=== PATIENT | male | born 1995 | race Caucasian/White ===

== ENCOUNTER 2017-04-16 21:02 | Emergency (ER) | payer MEDICAID, OTHER ==
[2017-04-16 21:12] VITALS: BP 131/86
--- NOTE | 2017-04-16 21:18 | EDM.PDOC ---
ED HPI GENERAL MEDICAL PROBLEM - General Chief Complaint: Lower Extremity Injury/Pain Stated Complaint: Lower right leg injury Time Seen by Provider: 04/16/17 21:05 Source of Information: Reports: Patient, Family, RN, RN Notes Reviewed History Limitations: Reports: No Limitations - History of Present Illness INITIAL COMMENTS - FREE TEXT/NARRATIVE: Patient presents to the ED at [facility] after he sustained a twisting injury to the right lower extremity. Patient states he was walking down a flight of stairs when he decided to go back up the steps, turning around abruptly twisting the lower right tib/fib area. Patient states he has a previous injury to the RLE that required surgical intervention. The patient complaints of some mild pain to the affected area. No numbness, tingling, or paresthesia to the RLE. Able to ambulate and bare weight with out problems. Patient states "I just want it checked out to make sure everything is ok." Onset: Today Onset Date: 04/16/17 Onset Time: 20:40 - Related Data Allergies Allergy/AdvReac Type Severity Reaction Status Date / Time No Known Allergies Allergy Verified 04/16/17 21:14 Home Meds: Home Meds . [No Known Home Meds] 05/12/14 [History] Past Medical History HEENT History: Reports: Cataract - Past Surgical History HEENT Surgical History: Reports: Cataract Surgery Social & Family History - Tobacco Use Smoking Status *Q: Never Smoker - Recreational Drug Use Recreational Drug Use: No Review of Systems - Review of Systems Review Of Systems: See Below Constitutional: Denies: Chills, Fever, Weakness Respiratory: Denies: Shortness of Breath, Cough Cardiovascular: Denies: Chest Pain, Palpitations Musculoskeletal: Reports: Leg Pain (RLE), Muscle Pain. Denies: Joint Pain, Joint Swelling Skin: Reports: No Symptoms Neurological: Reports: No Symptoms. Denies: Dizziness, Numbness, Paresthesia, Tingling ED EXAM, GENERAL - Physical Exam Exam: See Below Exam Limited By: No Limitations General Appearance: Alert, No Apparent Distress Respiratory/Chest: No Respiratory Distress, Lungs Clear, Normal Breath Sounds Cardiovascular: Normal Peripheral Pulses, Regular Rate, Rhythm Peripheral Pulses: 2+: Posterior Tibial (R), Dorsalis Pedis (R) Extremities: Normal Inspection, Normal Range of Motion, Other (very mild tenderness to deep palpation to the anterior RLE) Skin Exam: Warm, Dry, Intact, Normal Color Course - Vital Signs Last Recorded V/S: Last Vital Signs Temp 36.0 C 04/16/17 21:05 Pulse 100 04/16/17 21:05 Resp 16 04/16/17 21:05 BP 131/86 04/16/17 21:05 Pulse Ox 95 04/16/17 21:05 - Orders/Labs/Meds Orders: Active Orders 24 hr Category Date Time Status Tibia Fibula Rt [CR] Stat Exams 04/16/17 21:12 Taken - Radiology Interpretation Free Text/Narrative:: Right Tib/Fib, 2V: Xray reviewed by me. No acute findings. See scanned Rad report in EMR Departure - Departure Time of Disposition: 21:54 Disposition: Home, Self-Care 01 Condition: Good Clinical Impression: Leg injury Qualifiers: Encounter type: initial encounter Laterality: right Qualified Code(s): S89.91XA - Unspecified injury of right lower leg, initial encounter - Discharge Information Referrals: Abiola Gary PA-C [Primary Care Provider] - Forms: ED Department Discharge Additional Instructions: 1. Stay well hydrated and rest 2. Rest, elevate, and ice right leg several times a day for the next couple days 3. May alternate Tylenol/Advil as needed 4. See your Primary as symptoms warrant 5. Call with any questions/concerns - Problem List Review Problem List Initiated/Reviewed/Updated: Yes - My Orders Last 24 Hours: My Active Orders 04/16/17 21:12 Tibia Fibula Rt [CR] Stat - Assessment/Plan Last 24 Hours: My Active Orders 04/16/17 21:12 Tibia Fibula Rt [CR] Stat Plan: No acute findings on plain film. Recommend rest, elevate and ice several times a day. Follow up with Ortho as directed.
== END 2017-04-16 22:00 | disposition home or self-care (01) ==
LOC: VM.ED 21:02
DX: S89.91XA Unspecified injury of right lower leg, initial encounter (principal); X50.1XXA Overexertion from prolonged static or awkward postures, initial encounter
CPT/HCPCS: 73590-RT; 99283

== ENCOUNTER 2019-08-20 20:28 | Emergency (ER) | payer MEDICAID, OTHER ==
[2019-08-20 20:40] VITALS: PULSE 90
[2019-08-20] MEDS ORDERED: Ketorolac 30 MG/ML SDV IVPUSH ONE (20:42)
[2019-08-20] MEDS ORDERED: Ondansetron 8 MG in Sodium Chloride 0.9% 100 ML IV ONE (20:42)
--- NOTE | 2019-08-20 20:48 | EDM.PDOC ---
ED HPI GENERAL MEDICAL PROBLEM - General Chief Complaint: Abdominal Pain Stated Complaint: STOMACH PAIN Time Seen by Provider: 08/20/19 20:30 Source of Information: Reports: Patient History Limitations: Reports: No Limitations - History of Present Illness INITIAL COMMENTS - FREE TEXT/NARRATIVE: Patient states over the last 24 hours he has had intermittent right lower quadrant pain that he describes as a sharp stabbing he says at the worst is about a 10 today it is about a 3 or 4. He states it may last just a few seconds and the may last 4 to 5 minutes. He said is progressively gotten worse today in the area states he had a bowel movement about 1:00 which did not alleviate the pain he said he tried to eat some soup and settle his stomach for supper tonight but it did not help so he went on into work and was not able to fill that shift. He states he has had some nausea and has not really wanted to eat in the last 24 hours but Betasept eat and states he actually could not eat his favorite meal of steak that his is going to cook for him states it actually made him nauseated when he thought about it. He denies any other complaints at this time he denies any fever or chills back pain issues Duration: Day(s): Location: Reports: Abdomen Quality: Reports: Sharp, Stabbing Severity: Moderate Improves with: Reports: Rest Worsens with: Reports: None Associated Symptoms: Reports: Nausea/Vomiting Right Lower Abdomen Pain Score (Numeric/FACES): 4 - Related Data Allergies Allergy/AdvReac Type Severity Reaction Status Date / Time No Known Allergies Allergy Verified 08/20/19 20:36 Home Meds: Home Meds Diclofenac Sodium [Voltaren] 75 mg PO QAM PRN 01/28/18 [History] Past Medical History HEENT History: Reports: Cataract Musculoskeletal History: Reports: Fracture Other Musculoskeletal History: right tib/fib fracture - Past Surgical History HEENT Surgical History: Reports: Cataract Surgery Social & Family History - Tobacco Use Smoking Status *Q: Never Smoker ED ROS GENERAL - Review of Systems Review Of Systems: See Below Constitutional: Reports: No Symptoms HEENT: Reports: No Symptoms Respiratory: Reports: No Symptoms Cardiovascular: Reports: No Symptoms Endocrine: Reports: No Symptoms GI/Abdominal: Reports: Abdominal Pain, Anorexia, Nausea. Denies: Black Stool, Bloody Stool, Constipation, Diarrhea, Decreased Appetite, Distension, Flatus, Hematemesis, Hematochezia, Melena, Stool Incontinence : Reports: No Symptoms Musculoskeletal: Reports: No Symptoms Skin: Reports: No Symptoms Neurological: Reports: No Symptoms Hematologic/Lymphatic: Reports: No Symptoms Immunologic: Reports: No Symptoms ED EXAM, GI/ABD - Physical Exam Exam: See Below Exam Limited By: No Limitations General Appearance: Alert, WD/WN, No Apparent Distress, Other (PT noted with a slow kind of shuffling gait mild discomfort) Eyes: Bilateral: Normal Appearance, EOMI Nose: Normal Inspection, Normal Mucosa, No Blood Throat/Mouth: Normal Inspection, Normal Lips, Normal Teeth, Normal Gums, Normal Oropharynx, Normal Voice, No Airway Compromise Head: Atraumatic, Normocephalic Neck: Normal Inspection, Supple, Non-Tender, Full Range of Motion. No: Lymphadenopathy (L) Respiratory/Chest: No Respiratory Distress, Lungs Clear, Normal Breath Sounds, No Accessory Muscle Use, Chest Non-Tender Cardiovascular: Normal Peripheral Pulses, Regular Rate, Rhythm, No Edema, No Gallop, No JVD, No Murmur, No Rub GI/Abdominal Exam: Normal Bowel Sounds, Soft, No Distention, Guarding, Rebound, Tender, Other (Patient has noticed pain with heel drop and jumping up and down positive heel slap positive McBurney's with rebound tenderness negative rosvings ). No: Non-Tender, No Organomegaly, Distended, Rigid, Abnormal Bowel Sounds Back Exam: Normal Inspection, Full Range of Motion. No: CVA Tenderness (L), CVA Tenderness (R) Extremities: Normal Inspection, Normal Range of Motion, Non-Tender, No Pedal Edema, Normal Capillary Refill Neurological: Alert, Oriented, CN II-XII Intact, Normal Cognition, Normal Gait, No Motor/Sensory Deficits Psychiatric: Normal Affect, Normal Mood Skin Exam: Warm, Dry, Intact, Normal Color, No Rash Course - Vital Signs Text/Narrative:: CBC BMP with the patient having several signs and symptoms of appendicitis I will order CT scan with IV contrast abdomen pelvis Zofran 8 mg IV Toradol 30 mg IV Patient recheck states he feels much better after medication he has a white count of 14,000 CT abdomen pelvis positive for uncomplicated acute appendicitis nonspecific rectal wall thickening Oneal called for surgical consult at [address] ARGUELLO will accept transfer of patient he is okay with him coming POV and to come to the ER for direct admit Spoke with the patient risks benefits of going POV versus ambulance patient states he would rather go POV Last Recorded V/S: Last Vital Signs Temp 37.1 C 08/20/19 20:33 Pulse 90 08/20/19 20:33 Resp 16 08/20/19 21:51 BP 126/65 08/20/19 21:51 Pulse Ox 97 08/20/19 21:51 - Orders/Labs/Meds Orders: Active Orders 24 hr Category Date Time Status Abdomen Pelvis w Cont [CT] Stat Exams 08/20/19 20:42 Taken Labs: Laboratory Tests 08/20/19 08/20/19 Range/Units 20:50 20:50 WBC 14.2 H (4.0-10.0) x10^3/uL RBC 5.04 (4.5-6.0) x10^6/uL Hgb 14.7 (14.0-18.0) g/dL Hct 42.4 (40.0-52.0) % MCV 84.1 (78.0-93.0) fL MCH 29.2 (26.0-32.0) pg MCHC 34.7 (32.0-36.0) g/dL RDW Coeff of Jenae 12.9 (10.0-15.0) % Plt Count 282 (130-400) x10^3/uL Neut % (Auto) 78.2 (50.0-80.0) % Lymph % (Auto) 12.1 L (25.0-50.0) % [place] % (Auto) 6.6 (2.0-11.0) % Eos % (Auto) 2.9 (0.0-4.0) % Baso % (Auto) 0.2 (0.2-1.2) % Sodium 139 (136-145) mmol/L Potassium 3.8 (3.5-5.1) mmol/L Chloride 101 (98-107) mmol/L Carbon Dioxide 29 (21-32) mmol/L Anion Gap 12.8 (10-20) mmol/L BUN 14 (7-18) mg/dL Creatinine 1.0 (0.70-1.30) mg/dL Est Cr Clr Drug Dosing TNP Estimated GFR (MDRD) > 60 Glucose 97 (74-106) mg/dL Calcium 8.9 (8.5-10.1) mg/dL Meds: Medications Discontinued Medications Generic Name Dose Route Start Last Admin Trade Name Radha PRN Reason Stop Dose Admin Ondansetron HCl 8 mg/ Sodium 104 mls @ 400 mls/hr 08/20/19 20:42 08/20/19 20:56 Chloride IV 08/20/19 20:57 400 mls/hr ONETIME ONE Administration Iopamidol 100 ml 08/20/19 20:51 08/20/19 21:12 Isovue-300 (61%) IVPUSH 08/20/19 20:52 100 ml ONETIME ONE Administration Ketorolac Tromethamine 30 mg 08/20/19 20:42 08/20/19 20:54 Toradol IVPUSH 08/20/19 20:43 30 mg ONETIME ONE Administration Departure - Departure Time of Disposition: 21:50 Disposition: DC/Tfer to Acute Hospital 02 Condition: Good Clinical Impression: Appendicitis Qualifiers: Appendicitis type: acute appendicitis - Discharge Information *PRESCRIPTION DRUG MONITORING PROGRAM REVIEWED*: No *COPY OF PRESCRIPTION DRUG MONITORING REPORT IN PATIENT ELIE: No Referrals: Abiola Gary PA-C [Primary Care Provider] - Forms: ED Department Discharge, Interfacility Transfer EMTALA Additional Instructions: Go directly to [place] do not go anywhere else do not eat or drink anything until you are seen by the surgeon and/or operated on. Go through the emergency room there tell them you are direct admit for the surgeon whom I spoke with on the phone for transfer. Sepsis Event Note (ED) - Evaluation Sepsis Screening Result: No Definite Risk - Focused Exam Vital Signs: Vital Signs Temp Pulse Resp BP Pulse Ox 08/20/19 21:51 16 126/65 97 08/20/19 20:33 37.1 C 90 18 155/95 H 96 - Problem List & Annotations (1) Appendicitis SNOMED Code(s): 95638427 Code(s): K37 - UNSPECIFIED APPENDICITIS Status: Acute Qualifiers: Appendicitis type: acute appendicitis - My Orders Last 24 Hours: My Active Orders 08/20/19 20:42 Abdomen Pelvis w Cont [CT] Stat - Assessment/Plan Last 24 Hours: My Active Orders 07/15/20 20:42 Abdomen Pelvis w Cont [CT] Stat
[2019-08-20] MEDS ORDERED: Iopamidol 612 MG/ML 100 ML Bottle IVPUSH ONE (20:51)
[2019-08-20 21:10] LABS: CHLORIDE,CL 101 mmol/L (98-107); SODIUM,NA 139 mmol/L (136-145)
[2019-08-20 21:14] LABS: ANION GAP 12.8 mmol/L (10-20)
[2019-08-20 21:51] VITALS: BP 126/65
--- NOTE | 2019-08-21 09:09 | CT ---
[id number] CT/CT Abdomen Pelvis W IV EXAM: CT Abdomen Pelvis W IV CLINICAL DATA: RLQ PAIN, R/O APPY COMPARISON STUDY: None. FINDINGS: Lung bases are clear. Liver, spleen, gallbladder, pancreas, adrenal glands, and kidneys are unremarkable. The appendix is distended with surrounding fat stranding. It measures up to 1.0 cm. No lymphadenopathy, free fluid, or pneumoperitoneum. Scattered changes of spondylosis the spine. No fracture or osseous lesion. IMPRESSION: Acute uncomplicated appendicitis. Nathan Mejia DO 08/21/19 0906 Thank you for allowing us to participate in the care of your patient.
== END 2019-08-20 22:36 | disposition short-term general hospital (02) ==
LOC: VM.ED 20:28
DX: K35.80 Unspecified acute appendicitis (principal)
CPT/HCPCS: 74177; 80048; 85025; 96374; 96375; 99284-GF; 99285-25; J1885; J2405; J7050; Q9967

== ENCOUNTER 2021-02-07 10:33 | Emergency (ER) | payer OTHER, BC ==
[2021-02-07] MEDS ORDERED: Sodium Chloride 0.9% 10 ML Syringe FLUSH PRN (10:40)
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
[2021-02-07 11:06] LABS: ANION GAP 15.7 mmol/L (5-15); CHLORIDE,CL 101 mmol/L (98-107); SODIUM,NA 138 mmol/L (136-145)
[2021-02-07] MEDS ORDERED: Iopamidol 612 MG/ML 100 ML Bottle IVPUSH ONE (11:15)
[2021-02-07] MEDS ORDERED: fentaNYL 100 MCG/2 ML SDV IVPUSH ONE (11:32)
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
== END 2021-02-07 12:42 | disposition home or self-care (01) ==
LOC: VM.ED 10:33
DX: S80.212A Abrasion, left knee, initial encounter (principal); M54.6 Pain in thoracic spine; V49.9XXA Car occupant (driver) (passenger) injured in unspecified traffic accident, initial encounter; Y92.411 Interstate highway as the place of occurrence of the external cause
CPT/HCPCS: 36415; 70450; 71045; 71260; 72125; 72170; 74177; 80053; 83735; 85025; 96374; 99284; 99284-25; J3010; Q9967

== ENCOUNTER 2022-11-04 19:48 | Emergency (ER) | payer MEDICAID ==
[2022-11-04 20:45] LABS: CORONAVIRUS COVID-19 NAA NEGATIVE (NEGATIVE); INFLUENZA A NAA NEGATIVE (NEGATIVE); INFLUENZA B NAA NEGATIVE (NEGATIVE); RESPIRATORY SYNCYTIAL VIR NAA NEGATIVE (NEGATIVE)
[2022-11-04 23:25] VITALS: BP 120/72; PULSE 88
== END 2022-11-04 21:00 | disposition home or self-care (01) ==
LOC: VM.ED 19:48
DX: B34.9 Viral infection, unspecified (principal); F17.210 Nicotine dependence, cigarettes, uncomplicated; Z20.822 Contact with and (suspected) exposure to COVID-19; Z79.899 Other long term (current) drug therapy
CPT/HCPCS: 0241U; 99284